=== PATIENT | female | born 1970 | race Caucasian/White ===

== ENCOUNTER 2020-12-01 14:04 | Outpatient (CLI) | payer OTHER | END 2020-12-01 14:05 | disposition home or self-care (01) | LOC: CSHMRI 14:04 | PROVIDERS: ATTEND Student in an Organized Health Care Education/Training Program | DX: H81.01 Meniere's disease, right ear (principal) | CPT/HCPCS: 70553 ==

== ENCOUNTER 2023-05-09 14:24 | Outpatient (CLI) | payer OTHER | END 2023-05-09 14:25 | disposition home or self-care (01) | LOC: CSHMAMMO 14:24 | PROVIDERS: ATTEND Obstetrics & Gynecology | DX: Z12.31 Encounter for screening mammogram for malignant neoplasm of breast (principal); Z80.3 Family history of malignant neoplasm of breast | CPT/HCPCS: 77063; 77067 ==